=== PATIENT | male | born 1975 | race Caucasian/White ===

== ENCOUNTER → 2022-07-07 | Outpatient (CLI) | payer BC ==
--- NOTE | 2022-07-08 08:25 | US ---
EXAMINATION TYPE: US kidneys/renal and bladder DATE OF EXAM: 07/07/2022 COMPARISON: NONE CLINICAL HISTORY: R31.9 HEMATURIA,. Microscopic hematuria, history of kidney stones EXAM MEASUREMENTS: Right Kidney: 10.1 x 5.6 x 5.4 cm Left Kidney: 10.3 x 6.2 x 5.7 cm Right Kidney: no evidence of hydronephrosis Left Kidney: dense echogenic focus mid/lower pole = 0.8cm. This has posterior shadowing compatible wi th a nonobstructing renal stone. Bladder: wnl Bilateral Jets seen: yes IMPRESSION: 1. Nonobstructing inferior pole left renal stone.
== END | disposition home or self-care (01) ==
LOC: RADUSWWP 16:17
PROVIDERS: ATTEND Family Medicine
DX: N20.0 Calculus of kidney (principal)
CPT/HCPCS: 76770